=== PATIENT | male | born 1975 | race Hispanic/Latino ===

== ENCOUNTER 2017-08-25 20:22 | Emergency (ER) | payer BC ==
[~2017-08-25] VITALS: Ht 167.6 cm; Wt 136.1 kg
[2017-08-25] MEDS ORDERED: TETANUS/DIPHTHERIA TOX ADULT 0.5 ML SYR IM ONE (20:45)
--- NOTE | 2017-08-25 21:17 | Diagnostic Imaging Report ---
EXAM: LOWER LEG RIGHT, AP and lateral INDICATION: Punctured with resting nail COMPARISON: None FINDINGS: BONES: No acute fractures. JOINTS: No malalignment. SOFT TISSUES: Normal IMPRESSION: No radiopaque foreign body. Signed by: Dr. Teri Sam M.D. on 08/25/2017 9:13 PM
== END 2017-08-25 21:56 | disposition home or self-care (01) ==
LOC: ER 20:22
DX: S81.831A Puncture wound without foreign body, right lower leg, initial encounter (principal); W45.0XXA Nail entering through skin, initial encounter; Y92.008 Other place in unspecified non-institutional (private) residence as the place of occurrence of the external cause; E66.9 Obesity, unspecified
CPT/HCPCS: 90471; 90714; 99283